=== PATIENT | male | born 1960 | race Caucasian/White ===

== ENCOUNTER 2018-01-31 12:53 | Emergency (ER) | payer MEDICAID ==
[~2018-01-31] VITALS: Ht 175.3 cm; Wt 70.0 kg
[2018-01-31 12:58] VITALS: BP 125/74
== END 2018-01-31 13:28 | disposition left against medical advice (07) ==
LOC: ER 13:09
DX: S30.0XXA Contusion of lower back and pelvis, initial encounter (principal); Y08.89XA Assault by other specified means, initial encounter; Y93.89 Activity, other specified; Y92.89 Other specified places as the place of occurrence of the external cause; Y99.8 Other external cause status; Z53.21 Procedure and treatment not carried out due to patient leaving prior to being seen by health care provider

== ENCOUNTER 2020-04-16 04:47 | Emergency (ER) | payer MEDICAID ==
[~2020-04-16] VITALS: Ht 177.8 cm; Wt 82.0 kg
[2020-04-16] MEDS ORDERED: ACETAMINOPHEN 325MG TABLET PO ONE (06:15)
[2020-04-16 07:33] LABS: CLARITY URINE CLEAR (CLEAR); COLOR URINE YELLOW (YELLOW); KETONES URINE NEGATIVE (NEGATIVE); LEUKOCYTE ESTERASE URINE NEGATIVE (NEGATIVE); NITRITE URINE NEGATIVE (NEGATIVE); OCCULT BLOOD URINE NEGATIVE (NEGATIVE); PH URINE 5.5 (4.5-8.0); PROTEIN URINE 2+ (NEGATIVE); SPECIFIC GRAVITY URINE 1.029 (1.005-1.030)
[2020-04-16] MEDS ORDERED: TOPUD MT (08:12)
[2020-04-16 08:50] VITALS: BP 127/89
== END 2020-04-16 08:52 | disposition home or self-care (01) ==
LOC: ER 04:47
DX: N43.3 Hydrocele, unspecified (principal); K40.20 Bilateral inguinal hernia, without obstruction or gangrene, not specified as recurrent; R03.0 Elevated blood-pressure reading, without diagnosis of hypertension; F12.90 Cannabis use, unspecified, uncomplicated; F14.10 Cocaine abuse, uncomplicated
CPT/HCPCS: 76870; 81003; 93976; 99284

== ENCOUNTER 2020-04-18 20:57 | Inpatient (IN) | payer MEDICAID ==
[~2020-04-18] VITALS: Ht 177.8 cm; Wt 77.1 kg
[~2020-04-18 20:57] MED LIST: TOPUD MT
[2020-04-18 23:29] LABS: BASOPHILS % 0.8 % (0.0-2.0); EOSINOPHILS % 2.3 % (0.0-5.0); HEMATOCRIT. 37.9 % (42.0-52.0); HEMOGLOBIN. 12.8 g/dL (14.0-18.0); MEAN CORPUSCULAR HEMOGLOBIN 31.6 pg (28.0-32.0); MEAN CORPUSCULAR VOLUME 93.6 fL (80.0-94.0); MEAN PLATELET VOLUME 7.9 fl (7.4-10.4); MONOCYTES % 12.1 % (2.0-8.0); NEUTROPHILS % 66.8 % (40.0-76.0); PLATELET 251 x1000/uL (130-400); RED BLOOD CELL COUNT 4.05 mill/uL (4.7-6.1); RED CELL DISTRIBUTION WIDTH 14.7 % (11.6-14.6)
[2020-04-18 23:31] LABS: CLARITY URINE CLEAR (CLEAR); COLOR URINE YELLOW (YELLOW); KETONES URINE NEGATIVE (NEGATIVE); LEUKOCYTE ESTERASE URINE NEGATIVE (NEGATIVE); NITRITE URINE NEGATIVE (NEGATIVE); OCCULT BLOOD URINE NEGATIVE (NEGATIVE); PROTEIN URINE TRACE (NEGATIVE); SPECIFIC GRAVITY URINE 1.026 (1.005-1.030)
[2020-04-18 23:35] LABS: CHLORIDE 110 mEq/L (98-107)
[2020-04-19] MEDS ORDERED: FUROSEMIDE 20MG/2ML VIAL IVP ONE (03:15)
[2020-04-19] MEDS ORDERED: ASPIRIN 81MG TABLET PO ONE (03:15)
[2020-04-19] MEDS ORDERED: GUAIFENESIN 200MG/10ML SUGAR FREE UDC PO PRN (07:15)
[2020-04-19] MEDS ORDERED: HALOPERIDOL LACTATE 5MG/ML VIAL IM PRN (07:15)
[2020-04-19] MEDS ORDERED: ONDANSETRON HCL 4MG/2ML INJ IV PRN (07:15)
[2020-04-19] MEDS ORDERED: DOCUSATE SODIUM 100MG CAPSULE PO PRN (07:15)
[2020-04-19] MEDS ORDERED: NITROGLYCERIN 0.4MG TABLET SL SL PRN (07:15)
[2020-04-19] MEDS ORDERED: MAGNESIUM/ALUMINUM HYDROXIDE/SIMETHICONE 30ML UDC PO PRN (07:15)
[2020-04-19] MEDS ORDERED: ACETAMINOPHEN 325MG TABLET PO PRN ×2 (07:15)
[2020-04-19] MEDS ORDERED: CLONIDINE 0.1MG TABLET PO PRN (07:15)
[2020-04-19] MEDS ORDERED: IPRATROPIUM/ALBUTEROL 0.5-3(2.5)MG/3ML NEB NEB PRN (07:15)
[2020-04-19 07:41] LABS: TOTAL IRON BINDING CAPACITY 388 ug/dL (250-450)
[2020-04-19 08:20] LABS: FOLIC ACID (FOLATE) SERUM 16.7 ng/mL (>5.38)
[2020-04-19 11:00] VITALS: BP 131/94
[2020-04-19 12:00] VITALS: BP 131/94
[2020-04-19] MEDS: FUROSEMIDE 40MG/4ML VIAL IVP SCH ×2 (12:04→16:23)
[2020-04-19] MEDS: SPIRONOLACTONE 25MG TABLET PO SCH ×2 (12:05→23:57)
[2020-04-19] MEDS: ASPIRIN 325MG EC TABLET PO SCH (12:05)
[2020-04-19] MEDS: FAMOTIDINE 20MG TABLET PO SCH ×2 (12:05→23:57)
[2020-04-19] MEDS: ENOXAPARIN 40MG/0.4ML SYR SUBCUT SCH (12:05)
[2020-04-19 15:40] LABS: *AMPHETAMINES SCREEN URINE NEGATIVE (NEGATIVE); *BARBITURATES SCREEN URINE NEGATIVE (NEGATIVE); *BENZODIAZEPINES SCREEN URINE NEGATIVE (NEGATIVE); *COCAINE SCREEN URINE NEGATIVE (NEGATIVE); CANNABINOID URINE SCREEN NEGATIVE (NEGATIVE); METHADONE URINE SCREEN NEGATIVE (NEGATIVE); OPIATES URINE SCREEN NEGATIVE (NEGATIVE); PHENCYCLIDINE URINE SCREEN NEGATIVE (NEGATIVE)
[2020-04-19 16:21] LABS: CREATINE KINASE MB FRACTION 2.5 ng/mL (0.5-3.6)
[2020-04-19 20:00] VITALS: BP 125/76
[2020-04-19] MEDS ORDERED: ZOLPIDEM TARTRATE 5MG TABLET PO PRN (21:00)
[2020-04-20] VITALS: BP 118/61
[2020-04-20 00:41] LABS: CREATINE KINASE MB FRACTION 1.8 ng/mL (0.5-3.6)
[2020-04-20 04:00] VITALS: BP 113/72
[2020-04-20] MEDS: FUROSEMIDE 40MG/4ML VIAL IVP SCH ×2 (06:18→18:20)
[2020-04-20 08:00] VITALS: BP 130/86
[2020-04-20] MEDS: ASPIRIN 325MG EC TABLET PO SCH (08:30)
[2020-04-20] MEDS: FAMOTIDINE 20MG TABLET PO SCH ×2 (08:30→21:21)
[2020-04-20] MEDS: ENOXAPARIN 40MG/0.4ML SYR SUBCUT SCH (08:31)
[2020-04-20] MEDS: SPIRONOLACTONE 25MG TABLET PO SCH ×2 (08:31→21:27)
[2020-04-20 11:09] LABS: BASOPHILS % 0.7 % (0.0-2.0); EOSINOPHILS % 1.6 % (0.0-5.0); HEMATOCRIT. 42.3 % (42.0-52.0); HEMOGLOBIN. 13.9 g/dL (14.0-18.0); LYMPHOCYTES % 16.2 % (20.0-50.0); MEAN CORPUSCULAR VOLUME 94.3 fL (80.0-94.0); MEAN PLATELET VOLUME 8.2 fl (7.4-10.4); MONOCYTES % 10.3 % (2.0-8.0); NEUTROPHILS % 71.2 % (40.0-76.0); PLATELET 289 x1000/uL (130-400); RED BLOOD CELL COUNT 4.48 mill/uL (4.7-6.1); RED CELL DISTRIBUTION WIDTH 14.8 % (11.6-14.6)
[2020-04-20 11:26] LABS: CHLORIDE 98 mEq/L (98-107)
[2020-04-20 11:34] LABS: PHOSPHORUS 4.2 mg/dL (2.5-4.9)
[2020-04-20 12:00] VITALS: BP 106/69
[2020-04-20 16:00] VITALS: BP 123/91
[2020-04-20 20:00] VITALS: BP 109/72
[2020-04-20] MEDS: METOPROLOL TARTRATE 25MG TABLET PO SCH (21:00)
[2020-04-21] VITALS: BP 93/60
[2020-04-21 04:00] VITALS: BP 109/72
[2020-04-21 06:44] LABS: EOSINOPHILS % 2.9 % (0.0-5.0); HEMATOCRIT. 42.1 % (42.0-52.0); LYMPHOCYTES % 23.7 % (20.0-50.0); MEAN CORPUSCULAR HEMOGLOBIN 30.9 pg (28.0-32.0); MEAN PLATELET VOLUME 8.2 fl (7.4-10.4); MONOCYTES % 13.4 % (2.0-8.0); PLATELET 275 x1000/uL (130-400); RED BLOOD CELL COUNT 4.52 mill/uL (4.7-6.1); RED CELL DISTRIBUTION WIDTH 14.4 % (11.6-14.6)
[2020-04-21 06:53] LABS: CHLORIDE 98 mEq/L (98-107)
[2020-04-21 07:09] LABS: PHOSPHORUS 4.2 mg/dL (2.5-4.9)
[2020-04-21] MEDS: FUROSEMIDE 40MG/4ML VIAL IVP SCH ×2 (07:19→17:59)
[2020-04-21 08:00] VITALS: BP 98/56
[2020-04-21] MEDS ORDERED: ASPIRIN 325MG EC TABLET PO SCH (09:00)
[2020-04-21] MEDS: METOPROLOL TARTRATE 25MG TABLET PO SCH ×2 (09:00→21:00)
[2020-04-21] MEDS: LISINOPRIL 5MG TABLET PO SCH (09:00)
[2020-04-21] MEDS: ENOXAPARIN 40MG/0.4ML SYR SUBCUT SCH (09:22)
[2020-04-21] MEDS: FAMOTIDINE 20MG TABLET PO SCH ×2 (09:23→22:34)
[2020-04-21] MEDS: SPIRONOLACTONE 25MG TABLET PO SCH ×2 (09:23→22:34)
[2020-04-21] MEDS: ASPIRIN 81MG EC TABLET PO SCH (09:27)
[2020-04-21 12:00] VITALS: BP 109/62
[2020-04-21 16:00] VITALS: BP 102/65
[2020-04-21 20:00] VITALS: BP 99/68
[2020-04-22] VITALS: BP 107/73
[2020-04-22 04:00] VITALS: BP 114/76
[2020-04-22] MEDS: FUROSEMIDE 40MG/4ML VIAL IVP SCH ×2 (07:11→16:34)
[2020-04-22 08:00] VITALS: BP 120/77
[2020-04-22] MEDS: LISINOPRIL 5MG TABLET PO SCH (09:41)
[2020-04-22] MEDS: ENOXAPARIN 40MG/0.4ML SYR SUBCUT SCH (09:41)
[2020-04-22] MEDS: ASPIRIN 81MG EC TABLET PO SCH (09:41)
[2020-04-22] MEDS: METOPROLOL TARTRATE 25MG TABLET PO SCH ×2 (09:42→20:45)
[2020-04-22] MEDS: FAMOTIDINE 20MG TABLET PO SCH ×2 (09:42→20:45)
[2020-04-22] MEDS: SPIRONOLACTONE 25MG TABLET PO SCH ×2 (09:43→20:44)
[2020-04-22 12:00] VITALS: BP 111/79
[2020-04-22 16:00] VITALS: BP 116/72
[2020-04-22 20:00] VITALS: BP 91/55
[2020-04-22] MEDS: FUROSEMIDE 40MG TABLET PO SCH (20:45)
[2020-04-23] VITALS: BP 90/57
[2020-04-23 04:00] VITALS: BP 103/69
[2020-04-23 08:06] VITALS: BP 109/84
[2020-04-23] MEDS: METOPROLOL TARTRATE 25MG TABLET PO SCH (09:00)
[2020-04-23] MEDS: LISINOPRIL 5MG TABLET PO SCH (09:00)
[2020-04-23] MEDS: ASPIRIN 81MG EC TABLET PO SCH (09:01)
[2020-04-23] MEDS: SPIRONOLACTONE 25MG TABLET PO SCH (09:01)
[2020-04-23] MEDS: FUROSEMIDE 40MG TABLET PO SCH (09:01)
[2020-04-23] MEDS: ENOXAPARIN 40MG/0.4ML SYR SUBCUT SCH (09:01)
[2020-04-23] MEDS: FAMOTIDINE 20MG TABLET PO SCH (09:05)
[2020-04-23 12:12] VITALS: BP 102/70
[2020-04-23 13:41] VITALS: BP 102/70
== END 2020-04-23 15:00 | disposition home or self-care (01) | DRG 194 ==
LOC: ER 20:57 → 7EST 04-19 03:36 → EDBEDREQ 04-19 03:43 → ENRESERV 04-19 10:20 → 5WST 04-20 11:02
PROVIDERS: ADMIT Internal Medicine; ATTEND Internal Medicine
DX: I50.43 Acute on chronic combined systolic (congestive) and diastolic (congestive) heart failure (principal); N40.0 Benign prostatic hyperplasia without lower urinary tract symptoms; E44.0 Moderate protein-calorie malnutrition; D63.8 Anemia in other chronic diseases classified elsewhere; E83.51 Hypocalcemia; Z20.822 Contact with and (suspected) exposure to COVID-19; R74.02 Elevation of levels of lactic acid dehydrogenase [LDH]; F15.10 Other stimulant abuse, uncomplicated; K40.90 Unilateral inguinal hernia, without obstruction or gangrene, not specified as recurrent; F20.9 Schizophrenia, unspecified; F17.210 Nicotine dependence, cigarettes, uncomplicated; I42.9 Cardiomyopathy, unspecified; F31.9 Bipolar disorder, unspecified; N43.3 Hydrocele, unspecified; Z59.0 Homelessness; I25.2 Old myocardial infarction; Z79.899 Other long term (current) drug therapy; Z68.24 Body mass index [BMI] 24.0-24.9, adult; Z82.49 Family history of ischemic heart disease and other diseases of the circulatory system; Z71.51 Drug abuse counseling and surveillance of drug abuser
CPT/HCPCS: 36415; 71045; 80053; 80305; 81003; 82550; 82553; 82607; 82746; 83036; 83540; 83550; 83615; 83735; 83880; 84100; 84484; 85025; 85379; 93005; 93306; 93970; 94667; 97162; 99285; J1650; J1940; U0003

== ENCOUNTER 2020-06-15 21:56 | Inpatient (IN) | payer MEDICAID ==
[~2020-06-15] VITALS: Ht 177.8 cm; Wt 82.1 kg
[~2020-06-15 21:56] MED LIST changes: +ASPI-1160 PO; +FURO40TA5 PO; +METO25TA6 PO; +SPIR25TA PO; -TOPUD MT
[2020-06-15 22:40] LABS: BASOPHILS % 0.9 % (0.0-2.0); EOSINOPHILS % 2.3 % (0.0-5.0); HEMOGLOBIN. 12.9 g/dL (14.0-18.0); LYMPHOCYTES % 18.2 % (20.0-50.0); MEAN CORPUSCULAR HEMOGLOBIN 30.1 pg (28.0-32.0); MEAN PLATELET VOLUME 8.6 fl (7.4-10.4); MONOCYTES % 9.9 % (2.0-8.0); NEUTROPHILS % 68.7 % (40.0-76.0); PLATELET 224 x1000/uL (130-400); RED BLOOD CELL COUNT 4.29 mill/uL (4.7-6.1); RED CELL DISTRIBUTION WIDTH 15.6 % (11.6-14.6)
[2020-06-15] MEDS ORDERED: ASPIRIN 81MG TABLET PO ONE (22:45)
[2020-06-15] MEDS ORDERED: FUROSEMIDE 40MG/4ML VIAL IV ONE (22:45)
[2020-06-15] MEDS ORDERED: NITROGLYCERIN OINT 1GM/INCH UDPKT TD ONE (22:45)
[2020-06-15 22:52] LABS: CHLORIDE 106 mEq/L (98-107)
[2020-06-15 23:18] LABS: INR 1.1; PARTIAL THROMBOPLASTIN TIME 25.4 sec (23.4-31.0); PROTHROMBIN TIME 12.2 sec (9.6-11.0)
[2020-06-16 09:17] VITALS: BP 114/80
[2020-06-16] MEDS ORDERED: FURO-151 MT (09:59)
[2020-06-16] MEDS: FUROSEMIDE 40MG/4ML VIAL IVP SCH (11:06)
[2020-06-16] MEDS: ENOXAPARIN 40MG/0.4ML SYR SUBCUT SCH (11:07)
[2020-06-16 11:58] LABS: BASOPHILS % 0.6 % (0.0-2.0); EOSINOPHILS % 2.2 % (0.0-5.0); HEMATOCRIT. 39.5 % (42.0-52.0); LYMPHOCYTES % 22.3 % (20.0-50.0); MEAN CORPUSCULAR VOLUME 91.5 fL (80.0-94.0); MEAN PLATELET VOLUME 8.6 fl (7.4-10.4); MONOCYTES % 10.8 % (2.0-8.0); NEUTROPHILS % 64.1 % (40.0-76.0); PLATELET 233 x1000/uL (130-400); RED BLOOD CELL COUNT 4.32 mill/uL (4.7-6.1); RED CELL DISTRIBUTION WIDTH 15.8 % (11.6-14.6)
[2020-06-16 12:00] VITALS: BP 115/63
[2020-06-16 12:06] LABS: CHLORIDE 107 mEq/L (98-107)
[2020-06-16 16:00] VITALS: BP 114/59
[2020-06-16 20:00] VITALS: BP 109/72
[2020-06-17] VITALS: BP 115/79
[2020-06-17 08:00] VITALS: BP 128/92
[2020-06-17] MEDS: CARVEDILOL 3.125 MG TABLET PO SCH ×2 (08:51→21:00)
[2020-06-17] MEDS: ENOXAPARIN 40MG/0.4ML SYR SUBCUT SCH (08:51)
[2020-06-17] MEDS: FUROSEMIDE 40MG/4ML VIAL IVP SCH (08:51)
[2020-06-17] MEDS: LOSARTAN POTASSIUM 25 MG TABLET PO SCH (08:51)
[2020-06-17 09:11] LABS: BASOPHILS % 1.2 % (0.0-2.0); EOSINOPHILS % 2.2 % (0.0-5.0); HEMATOCRIT. 38.6 % (42.0-52.0); HEMOGLOBIN. 12.4 g/dL (14.0-18.0); LYMPHOCYTES % 23.3 % (20.0-50.0); MEAN CORPUSCULAR HEMOGLOBIN 29.3 pg (28.0-32.0); MEAN PLATELET VOLUME 8.2 fl (7.4-10.4); MONOCYTES % 10.6 % (2.0-8.0); NEUTROPHILS % 62.7 % (40.0-76.0); PLATELET 209 x1000/uL (130-400); RED BLOOD CELL COUNT 4.24 mill/uL (4.7-6.1)
[2020-06-17 09:22] LABS: CHLORIDE 103 mEq/L (98-107)
[2020-06-17 12:00] VITALS: BP 148/74
[2020-06-17 16:00] VITALS: BP 101/54
[2020-06-17 17:00] LABS: CLARITY URINE CLEAR (CLEAR); COLOR URINE YELLOW (YELLOW); KETONES URINE NEGATIVE (NEGATIVE); LEUKOCYTE ESTERASE URINE NEGATIVE (NEGATIVE); NITRITE URINE NEGATIVE (NEGATIVE); OCCULT BLOOD URINE NEGATIVE (NEGATIVE); PH URINE 7.5 (4.5-8.0); PROTEIN URINE NEGATIVE (NEGATIVE)
[2020-06-17 17:14] LABS: *AMPHETAMINES SCREEN URINE NEGATIVE (NEGATIVE); *BARBITURATES SCREEN URINE NEGATIVE (NEGATIVE); *BENZODIAZEPINES SCREEN URINE NEGATIVE (NEGATIVE); *COCAINE SCREEN URINE NEGATIVE (NEGATIVE)
[2020-06-17 17:16] LABS: CANNABINOID URINE SCREEN NEGATIVE (NEGATIVE); METHADONE URINE SCREEN NEGATIVE (NEGATIVE); OPIATES URINE SCREEN NEGATIVE (NEGATIVE); PHENCYCLIDINE URINE SCREEN NEGATIVE (NEGATIVE)
[2020-06-17 20:00] VITALS: BP 101/71
[2020-06-18] VITALS: BP 105/69
[2020-06-18 04:00] VITALS: BP 110/68
[2020-06-18 08:00] VITALS: BP 105/72
[2020-06-18] MEDS: LOSARTAN POTASSIUM 25 MG TABLET PO SCH (08:11)
[2020-06-18] MEDS: CARVEDILOL 3.125 MG TABLET PO SCH ×2 (08:11→20:32)
[2020-06-18] MEDS: FUROSEMIDE 40MG/4ML VIAL IVP SCH ×2 (08:11→17:24)
[2020-06-18] MEDS: ENOXAPARIN 40MG/0.4ML SYR SUBCUT SCH (08:11)
[2020-06-18 12:00] VITALS: BP 106/70
[2020-06-18] MEDS ORDERED: COR3 PO (12:34)
[2020-06-18] MEDS ORDERED: FURO-151 MT (12:34)
[2020-06-18] MEDS ORDERED: LOSA25TA3 PO (12:34)
[2020-06-18 16:14] VITALS: BP 100/60
[2020-06-18 20:00] VITALS: BP 96/59
[2020-06-19] VITALS: BP 121/80
[2020-06-19 04:00] VITALS: BP 110/76
[2020-06-19] MEDS: FUROSEMIDE 40MG/4ML VIAL IVP SCH (06:06)
[2020-06-19 08:00] VITALS: BP 100/69
[2020-06-19] MEDS: ENOXAPARIN 40MG/0.4ML SYR SUBCUT SCH (08:26)
[2020-06-19] MEDS: LOSARTAN POTASSIUM 25 MG TABLET PO SCH (08:28)
[2020-06-19] MEDS: CARVEDILOL 3.125 MG TABLET PO SCH (08:28)
[2020-06-19] MEDS ORDERED: SPIRONOLACTONE 25MG TABLET PO SCH (09:45)
[2020-06-19 10:24] VITALS: BP 100/69
== END 2020-06-19 14:33 | disposition home or self-care (01) | DRG 194 ==
LOC: ER 21:56 → 6WST 23:41 → ENRESERV 06-16 07:24
PROVIDERS: ADMIT Family Medicine; ATTEND Family Medicine
DX: I11.0 Hypertensive heart disease with heart failure (principal); E44.1 Mild protein-calorie malnutrition; I27.20 Pulmonary hypertension, unspecified; I36.1 Nonrheumatic tricuspid (valve) insufficiency; I50.43 Acute on chronic combined systolic (congestive) and diastolic (congestive) heart failure; F15.10 Other stimulant abuse, uncomplicated; F31.9 Bipolar disorder, unspecified; I42.0 Dilated cardiomyopathy; D64.9 Anemia, unspecified; F17.210 Nicotine dependence, cigarettes, uncomplicated; F10.10 Alcohol abuse, uncomplicated; K46.9 Unspecified abdominal hernia without obstruction or gangrene; Y90.9 Presence of alcohol in blood, level not specified; Z88.0 Allergy status to penicillin; Z79.84 Long term (current) use of oral hypoglycemic drugs; Z79.82 Long term (current) use of aspirin; Z79.899 Other long term (current) drug therapy; Z82.49 Family history of ischemic heart disease and other diseases of the circulatory system; Z59.0 Homelessness; Z91.19 Patient's noncompliance with other medical treatment and regimen; Z91.14 Patient's other noncompliance with medication regimen; F19.10 Other psychoactive substance abuse, uncomplicated; I34.0 Nonrheumatic mitral (valve) insufficiency; Z71.51 Drug abuse counseling and surveillance of drug abuser
CPT/HCPCS: 36415; 71045; 80053; 80305; 81003; 83880; 84484; 85025; 93005; 93306; 97162; 99285; J1650; J1940

== ENCOUNTER 2020-07-17 01:50 | Emergency (ER) | payer MEDICAID ==
[~2020-07-17] VITALS: Ht 177.8 cm; Wt 73.0 kg
[~2020-07-17 01:50] MED LIST changes: -ASPI-1160 PO; +COR3 PO; +FURO-151 MT; +LOSA25TA3 PO
[2020-07-17] MEDS ORDERED: FURO-151 MT (02:22)
[2020-07-17 02:23] VITALS: BP 139/89
[2020-07-17] MEDS ORDERED: FUROSEMIDE 40MG TABLET PO ONE (02:30)
== END 2020-07-17 02:50 | disposition home or self-care (01) ==
LOC: ER 01:50
DX: I50.9 Heart failure, unspecified (principal); F12.10 Cannabis abuse, uncomplicated; F15.10 Other stimulant abuse, uncomplicated; I49.9 Cardiac arrhythmia, unspecified; Z91.14 Patient's other noncompliance with medication regimen; Z88.0 Allergy status to penicillin; Z59.0 Homelessness; Z90.49 Acquired absence of other specified parts of digestive tract
CPT/HCPCS: 93005; 99283